=== PATIENT | female | born 1990 | race Caucasian/White ===

== ENCOUNTER 2018-05-06 02:02 | Observation (INO) ==
[2018-05-06] MEDS ORDERED: clonazePAM 0.5 MG TABLET PO ONE (02:08)
[2018-05-06 02:35] LABS: Basophils # 0.1 K/mcL (0.0-0.2); Basophils % 1.6 %; Eosinophils # 0.1 K/mcL (0.0-0.6); Eosinophils % 1.2 %; Hematocrit 46.9 % (35.3-44.9); Hemoglobin 15.7 g/dL (11.5-15.4); Immature Granulocytes % 0.2 % (0-4); Lymphocytes # 1.1 K/mcL (0.6-4.6); Lymphocytes % 25.5 %; Mean Corpuscular HGB Conc 33.5 g/dL (31.6-35.5); Mean Corpuscular Hemoglobin 30.1 pg (28.0-33.3); Mean Corpuscular Volume 89.8 fL (83.0-100.0); Mean Platelet Volume 10.2 fL (9.4-12.4); Monocytes # 0.4 K/mcL (0.0-1.3); Monocytes % 9.3 %; Neutrophils # 2.7 K/mcL (1.6-8.9); Platelet Count 318 K/mcL (140-400); Red Blood Count 5.22 M/mcL (3.82-4.97); Red Cell Distribution Width 12.6 % (11.5-14.5); Segmented Neutrophils % 62.2 %
[2018-05-06] MEDS ORDERED: Acetaminophen 325 MG TABLET PO ONE (02:45)
[2018-05-06 02:58] LABS: Acetaminophen < 10 mcg/mL (10-20); BUN/Creatinine Ratio 13 (6-26); Blood Urea Nitrogen 7 mg/dL (6-20); Calcium 8.9 mg/dL (8.6-10.3); Carbon Dioxide 28 mEq/L (23-29); Chloride 105 mEq/L (98-107); Ethanol 169 mg/dL (Less than 10); Glucose 107 mg/dL (70-105); Osmolality,Calculated 288 (280-300); Potassium 3.6 mEq/L (3.5-5.1); Salicylate < 2.5 mg/dL (15.0-30.0); Sodium 140 mEq/L (136-145); eGFR For Non-African Americans > 60 (> 60)
[2018-05-06 03:03] LABS: Bilirubin,Urine Negative (Negative); Blood,Urine Large (Negative); Clarity,Urine Cloudy (Clear); Color,Urine Yellow (Yellow); Glucose,Urine (UA) Normal (Normal); Ketones,Urine Negative (Negative); Leukocyte Esterase,Urine Trace (Negative); Nitrite,Urine Negative (Negative); Protein,Urine 30 mg/dL (Neg-Trace); Specific Gravity,Urine 1.021 (1.010-1.025); Urobilinogen,Urine Normal (Normal)
[2018-05-06 03:05] LABS: Bacteria,Urine Few per hpf (None-Few); Hyaline Casts,Urine None Seen per lpf (None-Few); RBC,Urine 0-3 per hpf (0-3); Squamous Epithelial Cell,Urine Many per lpf (None-Few); WBC,Urine 0-3 per hpf (0-3)
[2018-05-06 03:40] LABS: Amphetamine Screen,Urine Negative ng/mL (Cutoff=1000); Barbiturate Screen,Urine Negative ng/mL (Cutoff=200); Benzodiazepines Screen,Urine Negative ng/mL (Cutoff=200); Cannabinoid Screen,Urine Positive ng/mL (Cutoff = 50); Cocaine Screen,Urine Negative ng/mL (Cutoff= 300); Opiate Screen,Urine Negative ng/mL (Cutoff=300); Phencyclidine Screen,Urine Negative ng/mL (Cutoff=25)
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
[2018-05-06] MEDS ORDERED: MOM Conc 10 ML UD.LIQ PO PRN (10:52)
[2018-05-06] MEDS ORDERED: *HR* LORazepam 1 MG TABLET PO PRN (10:52)
[2018-05-06] MEDS ORDERED: hydrOXYzine pamoate 25 MG CAPSULE PO PRN (10:52)
[2018-05-06] MEDS ORDERED: Haloperidol Lactate 5 MG/ML VIAL IM PRN (10:52)
[2018-05-06] MEDS ORDERED: traZODone 50 MG TABLET PO PRN (10:52)
[2018-05-06] MEDS ORDERED: Mag Hydrox/Al Hydrox/Simeth 30 ML UDC PO PRN (10:52)
[2018-05-06] MEDS ORDERED: Acetaminophen 325 MG TABLET PO PRN (10:52)
[2018-05-06] MEDS ORDERED: *HR* LORazepam 2 MG/ML VIAL IM PRN (10:52)
[2018-05-06] MEDS: Nicotine 21 MG PATCH.TD24 TD SCH (11:58)
[2018-05-07] MEDS: Nicotine 21 MG PATCH.TD24 TD SCH (08:56)
[2018-05-07 09:06] VITALS: BP 114/80
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
== END 2018-05-07 14:50 | disposition home or self-care (01) ==
LOC: 1ANU 02:02 → EMEROOARM 02:02 → 1ANU 11:00
PROVIDERS: ADMIT Psychiatry & Neurology Forensic Psychiatry; ATTEND Psychiatry & Neurology Forensic Psychiatry